=== PATIENT | female | born 1970 | race Caucasian/White ===

== ENCOUNTER → 2017-12-05 | Outpatient (CLI) | payer OTHER ==
[~2017-12-05] MED LIST: EFFEXOR37.5 MG PO; MOTRIN600 MG PO; PRINIVIL10 MG PO; PROAIR HFA8.5 GM IH; ZESTRIL,PRINIVIL5 MG PO
== END | disposition home or self-care (01) ==
LOC: CDC 16:00
DX: Z01.810 Encounter for preprocedural cardiovascular examination (principal)
CPT/HCPCS: 93000

== ENCOUNTER 2017-12-08 10:24 | Day surgery (SDC) | payer OTHER ==
[~2017-12-08] VITALS: Ht 172.7 cm; Wt 81.6 kg
[~2017-12-08 10:24] MED LIST changes: -MOTRIN600 MG PO
[2017-12-08 10:58] VITALS: BP 121/83
[2017-12-08] MEDS ORDERED: MOTRIN600 MG PO (13:12)
[2017-12-08 13:45] VITALS: BP 120/86
== END 2017-12-08 14:10 | disposition home or self-care (01) ==
LOC: SDC 10:24
PROC: 0UC98ZZ Extirpation of Matter from Uterus, Via Natural or Artificial Opening Endoscopic (ICD-10-PCS; principal; 2017-12-08)
DX: T83.39XA Other mechanical complication of intrauterine contraceptive device, initial encounter (principal); J45.909 Unspecified asthma, uncomplicated; F17.200 Nicotine dependence, unspecified, uncomplicated; E66.3 Overweight; I10 Essential (primary) hypertension; Z22.322 Carrier or suspected carrier of Methicillin resistant Staphylococcus aureus; Z86.19 Personal history of other infectious and parasitic diseases; Q51.2 Other doubling of uterus; Z82.5 Family history of asthma and other chronic lower respiratory diseases; Z80.3 Family history of malignant neoplasm of breast; Z80.43 Family history of malignant neoplasm of testis; Z80.1 Family history of malignant neoplasm of trachea, bronchus and lung; Z80.0 Family history of malignant neoplasm of digestive organs
CPT/HCPCS: 87641; J1885; J2250; J3010